=== PATIENT | female | born 1965 | race Caucasian/White ===

== ENCOUNTER → 2020-02-25 | Outpatient (CLI) | payer OTHER, SELFPAY | END | disposition home or self-care (01) | LOC: LABSPEC 17:50 | PROVIDERS: PCP Internal Medicine; Referring Provider Nurse Practitioner Primary Care; Visit Provider Nurse Practitioner Primary Care | DX: Z20.828 Contact with and (suspected) exposure to other viral communicable diseases (principal) | CPT/HCPCS: 87635; 94799; U0003 ==

== ENCOUNTER 2021-05-25 10:13 | Emergency (ER) | payer OTHER, SELFPAY ==
[2021-05-25 10:14] VITALS: BP 138/82; PULSE 73; RESP 16; TEMP 36.4; O2SAT 99; BMI 29.5
--- NOTE | 2021-05-25 10:31 | EX.ED.DYSGE1 ---
HPI History of Present Illness Chief Complaint: Rash Informant: patient Narrative Narrative: 56-year-old female presents the emergency room with pain and rash of the left arm. She states for the past couple days she has had a pain posterior aspect of the shoulder down the arm. This morning she woke and noticed several areas that appear to have blisters on them. She states that she wanted to get the shingles vaccination few months ago that did have the right type that was covered and she did not get a chance to get get the correct 1. [facility] Medical History Hypothyroidism Home Medications levothyroxine 125 mcg PO DAILY 02/13/14 [History Last Taken 02/13/14 07:00] prednisone 60 mg PO DAILY #15 tablet 05/25/21 [Rx Last Taken Unknown] valacyclovir 1,000 mg PO TID #21 tab 05/25/21 [Rx Last Taken Unknown] Allergy/AdvReac Type Severity Reaction Status Date / Time No Known Allergies Allergy Verified 05/25/21 10:16 Social History (Updated 05/25/21 @ 10:[address] Joshua Santos DO) current gender identity: female Smoking Status: Never smoker ROS ROS ED Constitutional Constitutional ED: Denies chills or weight loss Eyes Eyes: Denies change in vision or diplopia ENT ENT ED: Denies ear pain, rhinorrhea or sore throat Cardiovascular Cardiovascular: Denies chest pain, orthopnea, palpitations or racing heartbeat Respiratory/Chest Respiratory/Chest: Denies cough, dyspnea or orthopnea Gastrointestinal Gastrointestinal: Denies abdominal pain, diarrhea, nausea or vomiting Genitourinary Genitourinary ED: Denies dysuria, hematuria or urinary frequency Musculoskeletal Musculoskeletal: Reports other Details: Left arm pain ; Denies arthralgias or myalgias Integumentary Reports rash; Denies abscess Neurologic Neurologic: Denies headache(s) or weakness Psychiatric Psychiatric: Denies anxiety, depression, suicidal ideation or suicidal thoughts Endocrine Endocrinology: Denies polydipsia, polyphagia or polyuria Allergic/Immunologic Allergic/Immunologic ED: Denies mouth swelling, tongue swelling or urticaria EXAM Physical Exam Const Vital Signs: 05/25/21 10:14 Temperature 97.6 F L Temperature Source Temporal Pulse Rate 73 Respiratory Rate 16 Blood Pressure 138/82 H Blood Pressure Mean 100 Pulse Ox 99 Oxygen Delivery Method Room Air Positive well nourished and well developed General Appearance ED: well developed HEENT Reports normocephalic, head/scalp atraumatic, TM's clear and moist mucous membranes Negative for trauma Tympanic Membrane ED: Yes TM's clear Eyes PERRL and EOMs intact bilaterally Neck no lymphadenopathy, supple and no JVD Resp normal respiratory effort and clear to auscultation bilaterally Cardio regular rate, regular rhythm and no murmurs GI normal to inspection, nondistended, normoactive bowel sounds and non-tender Palpation: soft Back/Spine no CVA tenderness and normal ROM Extremity normal to inspection General Extremety ED: Negative for edema General Extremity: Negative for edema Neuro oriented x3 and CN's II-XII intact bilaterally Sensorium / Orientation: alert Motor Exam: strength 5/5 throughout Psych mental status grossly normal Mood & Affect: Negative for depressed or tearful Skin no wounds Skin Narrative: There are several areas of clear blisters with a red base in the C8 distribution. MDM MDM MDM Narrative Medical decision making narrative: Patient will be started on valacyclovir as well as prednisone. She is comfortable with this plan return if worsening or concerns Discharge Plan Triage Chief Complaint: Rash ED Provider: Joshua Santos Dx/Rx/DC Orders Clinical Impression: Shingles Instructions: ED Shingles (Herpes Zoster) Prescriptions: New valacyclovir 1 gram tablet 1,000 mg PO TID Qty: 21 RF: 0 prednisone 20 MG tablet 60 mg PO DAILY Qty: 15 RF: 0 No Action levothyroxine 125 MCG tablet 125 mcg PO DAILY RF: 0 Primary Care Provider: Roxy Mccain Referrals: Roxy Mccain MD [Primary Care Provider] - As Needed Disposition Disposition: Home, Self Care
== END 2021-05-25 10:40 | disposition home or self-care (01) ==
LOC: ED 10:39
PROVIDERS: Emergency Provider Emergency Medicine; PCP Internal Medicine
DX: B02.9 Zoster without complications (principal); E03.9 Hypothyroidism, unspecified; Z79.890 Hormone replacement therapy
CPT/HCPCS: 99282